=== PATIENT | female | born 1995 ===

== ENCOUNTER 2017-05-22 12:22 | Emergency (ER) | payer OTHER ==
--- NOTE | 2017-05-22 12:26 | ER Report ---
History and Physical Time Seen By MD: 12:25 HPI/ROS CHIEF COMPLAINT: Syncope HISTORY OF PRESENT ILLNESS: This is a 21-year-old female who presents to the emergency department via EMS for a syncopal episode. Patient states that she was in the shower today, lightheaded and fell to the ground but was able to catch her self. She states she stood up and blacked out and then fell down and hit the right side of her head on the hard surface in her dorm room. Patient states that she try to get up again and then got lightheaded and "blacked out" again but denies hitting her head again. EMS was called and they arrived she was alert and oriented her blood sugar was 86. Patient does state that during these episodes she did have lightheadedness and blurred vision. She denies chest pain or shortness of breath. Cough colds, aches or chills no rashes no recent travel. She does have a right-sided headache. REVIEW OF SYSTEMS: Constitutional: No fever, no chills. Eyes: No discharge. ENT: No sore throat. Cardiovascular: No chest pain, no palpitations. Respiratory: No cough, no shortness of breath. Gastrointestinal: No abdominal pain, no vomiting. Genitourinary: No hematuria. Musculoskeletal: No back pain. Skin: No rashes. Neurological: As above. Allergies: Coded Allergies: Penicillins (Verified Allergy, Intermediate, hives, 05/22/17) Home Meds Reported Medications Sertraline Hcl (ZOLOFT) 100 Mg Tablet, 1 TAB PO QDAY, TAB 05/22/17 Past Medical/Surgical History Patient has a past medical and surgical history of near syncope. Reviewed Nurses Notes: Yes Constitutional Vital Sign - Last 24 Hours 05/22/17 05/22/17 05/22/17 05/22/17 12:26 12:29 12:30 12:47 Temp 98.1 Pulse 62 Resp 16 B/P (MAP) 109/64 (79) 109/64 103/81 (88) 107/63 (78) Pulse Ox 99 O2 Delivery Room Air 05/22/17 05/22/17 05/22/17 05/22/17 12:48 12:50 12:50 12:52 Pulse 60 51 60 B/P (MAP) 107/63 (78) 108/61 (77) 108/61 (77) 107/63 (78) 05/22/17 05/22/17 05/22/17 05/22/17 12:52 13:22 13:30 13:43 Pulse 60 Resp 17 B/P (MAP) 107/63 (78) 57/40 (46) 113/72 (86) Pulse Ox 98 99 05/22/17 05/22/17 05/22/17 05/22/17 14:00 14:30 14:35 15:00 Pulse 66 Resp 14 B/P (MAP) 111/68 (82) 112/66 (81) 113/66 (82) Pulse Ox 97 05/22/17 05/22/17 05/22/17 15:30 15:35 16:01 Pulse 66 70 Resp 21 B/P (MAP) 110/65 (80) 113/61 (78) Pulse Ox 95 95 Intake and Output 05/22/17 05/22/17 05/23/17 15:00 23:00 07:00 Intake Total 2000 ml Balance 2000 ml Physical Exam General Appearance: The patient is alert, has no immediate need for airway protection and no signs of toxicity. Eyes: Pupils equal and round no pallor or injection. ENT, Mouth: Mucous membranes are moist. Respiratory: There are no retractions, lungs are clear to auscultation. Cardiovascular: Regular rate and rhythm, no murmurs, clicks or rubs. Gastrointestinal: Abdomen is soft and non tender, no masses, bowel sounds normal. Neurological: Alert and oriented 4. Moving all extremities. Following all commands. No focal neural deficits. Cranial nerves II through XII intact. Skin: Warm and dry, no rashes. Small amount of edema to the right parietal. Musculoskeletal: Mild cervical spine tenderness to the C1 area. No step-offs, crepitus or obvious deformities noted. Extremities are nontender, nonswollen and have full range of motion. DIFFERENTIAL DIAGNOSIS: After history and physical exam differential diagnosis was considered for syncope including but not limited to vasovagal syncope, arrhythmia, dehydration, and blood loss. Medical Decision Making Data Points Result Diagram: 05/22/17 1221 05/22/17 1221 Laboratory Hematology Test 05/22/17 12:21 05/22/17 14:50 Red Blood Count 4.70 M/uL (4.17-5.56) Mean Corpuscular Volume 94.9 fL (80.0-96.0) Mean Corpuscular Hemoglobin 32.9 pg (26.0-33.0) Mean Corpuscular Hemoglobin Concent 34.7 g/dL (32.0-36.0) Red Cell Distribution Width 13.0 % (11.5-14.5) Mean Platelet Volume 8.1 fL (7.2-11.1) Neutrophils (%) (Auto) 55.1 % (39.4-72.5) Lymphocytes (%) (Auto) 35.2 % (17.6-49.6) Monocytes (%) (Auto) 6.3 % (4.1-12.4) Eosinophils (%) (Auto) 2.8 % (0.4-6.7) Basophils (%) (Auto) 0.6 % (0.3-1.4) Nucleated RBC Relative Count (auto) 0.0 /100WBC Neutrophils # (Auto) 3.7 K/uL (2.0-7.4) Lymphocytes # (Auto) 2.3 K/uL (1.3-3.6) Monocytes # (Auto) 0.4 K/uL (0.3-1.0) Eosinophils # (Auto) 0.2 K/uL (0.0-0.5) Basophils # (Auto) 0.0 K/uL (0.0-0.1) Nucleated RBC Absolute Count (auto) 0.00 K/uL Sodium Level 143 mmol/L (137-145) Potassium Level 3.7 mmol/L (3.5-5.0) Chloride Level 105 mmol/L (98-107) Carbon Dioxide Level 23 mmol/L (22-31) Blood Urea Nitrogen 5 mg/dl (7-18) Creatinine 0.90 mg/dl (0.52-1.04) Glomerular Filtration Rate Calc > 60.0 Random Glucose 112 mg/dl (75-110) Calcium Level 9.8 mg/dl (8.4-10.2) Total Bilirubin 0.5 mg/dl (0.2-1.3) Aspartate Amino Transf (AST/SGOT) 18 U/L (0-35) Alanine Aminotransferase (ALT/SGPT) 16 U/L (0-56) Alkaline Phosphatase 47 U/L (0-126) Total Protein 7.9 gm/dl (6.3-8.2) Albumin 4.4 g/dl (3.5-5.0) Human Chorionic Gonadotropin, Qual Negative (NEGATIVE) Urine Color Yellow Urine Clarity Slightly-cloudy Urine pH 5.0 pH (4.8-9.5) Urine Specific [place] 1.009 Urine Protein Negative mg/dL (NEGATIVE) Urine Glucose (UA) Negative mg/dL (NEGATIVE) Urine Ketones Negative mg/dL (NEGATIVE) Urine Blood Large (NEGATIVE) Urine Nitrite Negative (NEGATIVE) Urine Bilirubin Negative (NEGATIVE) Urine Urobilinogen Negative mg/dL (0.2-1.9) Urine Leukocyte Esterase Negative (NEGATIVE) Urine RBC 3 /HPF (0-2/HPF) Urine WBC 3 /HPF (0-5/HPF) Urine Squamous Epithelial Cells Many /LPF (</=FEW) Urine Bacteria Negative /HPF (NONE-FEW) Urine Mucus Few /HPF (NONE-FEW) Chemistry Test 05/22/17 12:21 05/22/17 14:50 White Blood Count 6.7 k/uL (4.5-11.0) Red Blood Count 4.70 M/uL (4.17-5.56) Hemoglobin 15.5 g/dL (12.0-16.0) Hematocrit 44.6 % (34.0-47.0) Mean Corpuscular Volume 94.9 fL (80.0-96.0) Mean Corpuscular Hemoglobin 32.9 pg (26.0-33.0) Mean Corpuscular Hemoglobin Concent 34.7 g/dL (32.0-36.0) Red Cell Distribution Width 13.0 % (11.5-14.5) Platelet Count 260 K/uL (150-450) Mean Platelet Volume 8.1 fL (7.2-11.1) Neutrophils (%) (Auto) 55.1 % (39.4-72.5) Lymphocytes (%) (Auto) 35.2 % (17.6-49.6) Monocytes (%) (Auto) 6.3 % (4.1-12.4) Eosinophils (%) (Auto) 2.8 % (0.4-6.7) Basophils (%) (Auto) 0.6 % (0.3-1.4) Nucleated RBC Relative Count (auto) 0.0 /100WBC Neutrophils # (Auto) 3.7 K/uL (2.0-7.4) Lymphocytes # (Auto) 2.3 K/uL (1.3-3.6) Monocytes # (Auto) 0.4 K/uL (0.3-1.0) Eosinophils # (Auto) 0.2 K/uL (0.0-0.5) Basophils # (Auto) 0.0 K/uL (0.0-0.1) Nucleated RBC Absolute Count (auto) 0.00 K/uL Glomerular Filtration Rate Calc > 60.0 Calcium Level 9.8 mg/dl (8.4-10.2) Total Bilirubin 0.5 mg/dl (0.2-1.3) Aspartate Amino Transf (AST/SGOT) 18 U/L (0-35) Alanine Aminotransferase (ALT/SGPT) 16 U/L (0-56) Alkaline Phosphatase 47 U/L (0-126) Total Protein 7.9 gm/dl (6.3-8.2) Albumin 4.4 g/dl (3.5-5.0) Human Chorionic Gonadotropin, Qual Negative (NEGATIVE) Urine Color Yellow Urine Clarity Slightly-cloudy Urine pH 5.0 pH (4.8-9.5) Urine Specific [place] 1.009 Urine Protein Negative mg/dL (NEGATIVE) Urine Glucose (UA) Negative mg/dL (NEGATIVE) Urine Ketones Negative mg/dL (NEGATIVE) Urine Blood Large (NEGATIVE) Urine Nitrite Negative (NEGATIVE) Urine Bilirubin Negative (NEGATIVE) Urine Urobilinogen Negative mg/dL (0.2-1.9) Urine Leukocyte Esterase Negative (NEGATIVE) Urine RBC 3 /HPF (0-2/HPF) Urine WBC 3 /HPF (0-5/HPF) Urine Squamous Epithelial Cells Many /LPF (</=FEW) Urine Bacteria Negative /HPF (NONE-FEW) Urine Mucus Few /HPF (NONE-FEW) Urinalysis Test 05/22/17 14:50 Urine Color Yellow Urine Clarity Slightly-cloudy Urine pH 5.0 pH (4.8-9.5) Urine Specific [place] 1.009 Urine Protein Negative mg/dL (NEGATIVE) Urine Glucose (UA) Negative mg/dL (NEGATIVE) Urine Ketones Negative mg/dL (NEGATIVE) Urine Blood Large (NEGATIVE) Urine Nitrite Negative (NEGATIVE) Urine Bilirubin Negative (NEGATIVE) Urine Urobilinogen Negative mg/dL (0.2-1.9) Urine Leukocyte Esterase Negative (NEGATIVE) Urine RBC 3 /HPF (0-2/HPF) Urine WBC 3 /HPF (0-5/HPF) Urine Squamous Epithelial Cells Many /LPF (</=FEW) Urine Bacteria Negative /HPF (NONE-FEW) Urine Mucus Few /HPF (NONE-FEW) EKG/Imaging EKG Interpretation 12 lead EKG: Time of EKG 1237. Rhythm: Sinus bradycardia, ventricular rate 48 bpm. [place]: normal QRS: normal ST segments: No ST depression or elevation identified. Imaging Location: [facility] Patient: Mimi Martinez : 1995 Visit/Account:[id number] Date of Sevice: 05/22/2017 EXAMINATION: CT HEAD WITHOUT CONTRAST COMPARISON: None available HISTORY: Near syncope. Right-sided head injury due to fall. PROCEDURE: Noncontrast CT from the vertex through the skull base. One of the following dose optimization techniques was utilized in the performance of this exam: Automated exposure control; adjustment of the mA and/or kV according to the patient's size; or use of an iterative reconstruction technique. Specific details can be referenced in the facility's radiology CT exam operational policy. FINDINGS: Brain volume: Age-appropriate. Hemorrhage/extra-axial fluid: None. Mass effect/midline shift/edema: None. Ischemia: Elizalde-white differentiation is preserved. Ventricles and basal cisterns: Within normal limits. Posterior fossa: Negative. Vessels: Negative. Calvarium, skull base, and scalp: Negative. Visualized sinuses and orbits: Within normal limits. IMPRESSION: Negative age-appropriate noncontrast head CT. Report Dictated By: Harry Baez MD at 05/22/2017 1:22 PM Report E-Signed By: Harry Baez MD at 05/22/2017 1:32 PM [id number] ED Course/Re-evaluation Clinical Indication for ER IV: Hydration, IV Access ED Course The patient was admitted to a room. A history and physical were obtained. Differential diagnoses are considered. An IV is started. A CBC, CMP and hCG were obtained. Lab studies are unremarkable. Negative hCG. Negative head CT. She did get 2 L of normal saline. UA unremarkable set for large blood patient is on her menstrual cycle. The mother and the daughter both had questions about seizures I did explain to them that this does not fit the pattern of seizures however mom does have a history of some seizure activity and I suggested that they're concerned about this it would be valdovinos to follow-up with her primary care provider or established immediately here in [place]. It also kind of them that the primary care provider would likely continue a more thorough workup such as Holter monitor or EEGs if they find this necessary. I did tell him that I do not have a clear explanation as to why she is had these syncopal episodes, and even though she was non-orthostatic and her labs look okay she still could' ve been a little bit behind on her fluid intake. Mom does state that she is very bad about drinking water and drinks a lot of coffee during the days. Did discuss drinking more water and decreasing her caffeine intake. Patient's and the mother. Both were in agreement with this plan of care and discharged home. Decision to Disposition Date: May 22, 2017 Decision to Disposition Time: 16:10 Depart Departure Latest Vital Signs Vital Signs Date Time Temp Pulse Resp B/P (MAP) Pulse Ox O2 Delivery O2 Flow Rate FiO2 05/22/17 16:01 70 113/61 (78) 95 05/22/17 15:35 21 05/22/17 12:29 98.1 Room Air Impression: Primary Impression: Syncope Condition: Improved Disposition: HOME OR SELF-CARE Referrals: [facility] Patient Instructions: Syncope (DC) Additional Instructions: Drink plenty of fluids. Get plenty of rest. Follow up with a new primary care provider or [facility] within 7 days. You may need a more intensive workup including more of a cardiac workup or EEG's , etc, but your primary care will decide the next steps you need for further evaluation. Return to the ED for any other concerns or worsening symptoms. Problem Qualifiers Primary Impression: Syncope Syncope type: unspecified Qualified Codes: R55 - Syncope and collapse CHARLINE DOBBINS PARTS EXPEDITER-BC May 22, 2017 12:26
[2017-05-22] MEDS ORDERED: NS(*) 0.9% 1000 ML BAG 1,000 ML IV ONE ×2 (12:35→13:45)
[2017-05-22] MEDS ORDERED: ONDANSETRON 4 MG/2 ML VIAL IVP ONE (12:35)
[2017-05-22] MEDS ORDERED: SERT-173 PO (12:37)
[2017-05-22 12:43] LABS: PLATELET COUNT, AUTOMATED 260 K/uL (150-450)
--- NOTE | 2017-05-22 12:46 | EKG ---
FACILITY: [facility] - [place] PATIENT NAME: TRISTAN BLANCHARD : [id number] MR: [id number] V: [id number] EXAM DATE: ORDERING PHYSICIAN: CHARLINE DOBBINS TECHNOLOGIST: WENDY Singh Reason : ER TRAUMA Blood Pressure : / mmHG Vent. Rate : 058 BPM Atrial Rate : 058 BPM P-R Int : 154 ms QRS Dur : 088 ms QT Int : 408 ms P-R-T Axes : 001 087 069 degrees QTc Int : 400 ms Sinus bradycardia Diffuse ST-T findings suspect early repolarization, but cannot exclude other causes No previous ECGs available Confirmed by ELEANOR MENDEZ ([id number]) on 05/22/2017 5:29:25 PM Referred By: Confirmed By:ELEANOR MENDEZ
--- NOTE | 2017-05-22 13:37 | RADIOLOGY IMAGING REPORT ---
FACILITY: [facility] [place] PATIENT NAME: Mimi Martinez : 1995 MR: [id number] V: [id number] EXAM DATE: ORDERING PHYSICIAN: CHARLINE DOBBINS TECHNOLOGIST: Location: [facility] - [place] Patient: Mimi Martinez : 1995 Visit/Account:[id number] Date of Sevice: 05/22/2017 EXAMINATION: CT HEAD WITHOUT CONTRAST COMPARISON: None available HISTORY: Near syncope. Right-sided head injury due to fall. PROCEDURE: Noncontrast CT from the vertex through the skull base. One of the following dose optimizat ion techniques was utilized in the performance of this exam: Automated exposure control; adjustment o f the mA and/or kV according to the patient's size; or use of an iterative reconstruction technique. Specific details can be referenced in the facility's radiology CT exam operational policy. FINDINGS: Brain volume: Age-appropriate. Hemorrhage/extra-axial fluid: None. Mass effect/midline shift/edema: None. Ischemia: Elizalde-white differentiation is preserved. Ventricles and basal cisterns: Within normal limits. Posterior fossa: Negative. Vessels: Negative. Calvarium, skull base, and scalp: Negative. Visualized sinuses and orbits: Within normal limits. IMPRESSION: Negative age-appropriate noncontrast head CT. Report Dictated By: Harry Baez MD at 05/22/2017 1:22 PM Report E-Signed By: Harry Baez MD at 05/22/2017 1:32 PM [id number]
[2017-05-22] MEDS ORDERED: ACETAMINOPHEN 325 MG TAB PO ONE (13:55)
[2017-05-22 16:01] VITALS: BP 113/61
== END 2017-05-22 16:20 | disposition home or self-care (01) ==
LOC: ER 12:27
DX: R55 Syncope and collapse (principal)
CPT/HCPCS: 70450; 81001; 84703; 85025; 93005; 96361; 96374; 99284; J2405; J7030; 82040; 82247; 82310; 82374; 82435; 82565; 82947; 84075; 84132; 84155; 84295; 84450; 84460; 84520

== ENCOUNTER → 2017-05-22 | Outpatient (CLI) | payer OTHER ==
[~2017-05-22] MED LIST: SERT-173 PO
== END ==
LOC: AMB 12:03
PROVIDERS: ATTEND Nurse Practitioner
DX: R55 Syncope and collapse (principal); S00.211A Abrasion of right eyelid and periocular area, initial encounter; W18.2XXA Fall in (into) shower or empty bathtub, initial encounter; Y93.E1 Activity, personal bathing and showering; Y92.091 Bathroom in other non-institutional residence as the place of occurrence of the external cause; Y99.9 Unspecified external cause status
CPT/HCPCS: A0425; A0427